=== PATIENT | male | born 1980 | race Caucasian/White ===

== ENCOUNTER 2022-06-23 17:43 | Emergency (ER) | payer BC, SELFPAY ==
[2022-06-23 18:04] VITALS: BP 123/72; PULSE 65; RESP 18; TEMP 36.4; O2SAT 97; BMI 34.3
--- NOTE | 2022-06-23 22:47 | ED_ITS ---
HPI - Wound/Laceration General Chief Complaint: Wound/Laceration Stated Complaint: L thumb injury Time Seen by Provider: 06/23/22 22:46 Source: patient Mode of arrival: ambulatory Limitations: no limitations History of Present Illness HPI narrative: 42-year-old male presenting to the emergency department for evaluation of laceration to left distal aspect of thumb, patient cut his thumb at work while working with metal, he is not up-to-date on a tetanus shot, initially it was bleeding however now has subsided. Denies numbness, tingling. No previous issues with left thumb. Patient not a diabetic Related Data Allergies Allergy/AdvReac Type Severity Reaction Status Date / Time No Known Allergies Allergy Verified 06/23/22 18:07 Review of Systems Review of Systems: Constitutional : No Fever, No Chills, Cardiovascular : No Chest Pain, No SOB Respiratory : No Dyspnea Gastrointestinal : No abdominal pain Musculoskeletal : No Joint Swelling Skin : No rash, positive skin laceration Neuro : No Weakness, No Numbness Psych : No SI/HI Yes all other systems are reviewed and are negative [facility] Past Medical History Attestation statement: The following information was validated with the patient. Source: old records reviewed and nursing notes reviewed Social History Social History Advance Directives: No Advance Directives Information Provided: No Physical Exam Vital Signs: Vital Signs: Last Vital Signs Temp 97.8 F 06/23/22 22:56 Pulse 59 06/23/22 22:56 Resp 12 06/23/22 22:56 BP 130/78 06/23/22 22:56 Pulse Ox 97 06/23/22 22:56 O2 Del Method Room Air 06/23/22 22:56 BMI result Body Mass Index 34.3 vss Appearance: Alert.? Oriented X3.? No acute distress.? Head: Normocephalic, atraumatic, no step-offs or deformities Eyes: Pupils equal, round and reactive to light.? CVS: Normal heart rate and rhythm.? Pulses normal.? Respiratory: No respiratory distress.? Breath sounds normal.? Abdomen: Soft and nontender.? Skin: Skin warm and dry.? Normal skin color.? Normal skin turgor.?+ there is a 2 cm laceration to the distal aspect of left thumb. No foreign bodies visualized. 2+ radial pulses equal bilateral. No wrist drop. Capillary refill less than 2 seconds to bilateral upper extremity digits. Normal sensation distally. Extremities: No lower extremity edema.? No calf ttp. 5/5 strength to bilateral upper and lower extremities Neuro: Oriented X 3.? No motor deficit.? No sensory deficit. CN 2-12 intact Course Reevaluation(s) Reevaluation #1: 3,5-0 sutures placed to patient's left thumb. Patient tolerated procedure well. Educated patient on diagnosis and treatment plan, answered all question, patient verbalizes understanding. At this time patient will be discharged home, advised to return with new or worsening symptoms. Educated on worrisome signs and symptoms and when to return. At this time I feel comfortable discharge home. Time: 23:19 Medical Decision Making Medical Decision Making [facility] Narrative: [id number] 42-year-old male presents with laceration to left thumb distal aspect occurred today at work while cutting metal. Not up-to-date on tetanus shot. Denies numbness and tingling. Not on blood thinners. Physical exam significant for Skin warm and dry.? Normal skin color.? Normal skin turgor.?+ there is a 2 cm laceration to the distal aspect of left thumb. No foreign bodies visualized. 2+ radial pulses equal bilateral. No wrist drop. Capillary refill less than 2 seconds to bilateral upper extremity digits. Normal sensation distally. This is likely a simple laceration, unlikely fractures, dislocation, threatened limb, neurovascular compromise. Plan Differential Diagnosis Differential Diagnoses: The differential diagnosis associated with the presentation includes This is likely a simple laceration, unlikely fractures, dislocation, threatened limb, neurovascular compromise. Core Measures AMI core measures followed: Yes Measure exclusions: not indicated Procedures Laceration Laceration 1: Site: hand Side (If applicable): left Size (cm): 2 Description: irregular Depth: simple, single layer Local Anesthetic: lidocaine 1% Amount of anesthesia used (mL): 5 Pre-repair: wound explored, irrigated extensively and deep structures intact Skin layer closed with: nylon Size (cm): 5-0 Number of sutures: 3 Technique: simple, interrupted Critical Care Time Critical Care Time Critical Care Time: No Discharge Plan Discharge Clinical Impression: Laceration Patient Disposition: Home, Self-Care Instructions: Laceration (ED) Additional Instructions: Take your medications as prescribed. If you were prescribed antibiotics today, it is important that you take your medication to their entirety, do not skip any doses, do not finish them early. Follow-up with your primary care provider this week. Return to the emergency department with new or worsening symptoms. Such as fevers, chills, chest pain, shortness of breath, nausea, vomiting, dizziness, headache, vision changes, lethargy In case of emergency call 911 Please follow-up with the were connection as this was a work related injury. Referrals: Physician,None [Primary Care Provider] - 2 days
[2022-06-23 22:56] VITALS: BP 130/78; PULSE 59; RESP 12; TEMP 36.6; O2SAT 97
[2022-06-23] MEDS: Diphth,Pertus(ACell),Tet Adult 0.5 ML SYRINGE IM (23:19)
[2022-06-23] MEDS: Lidocaine HCl 2 % MPF 5 ML VIAL SUBCUT (23:20)
== END 2022-06-23 23:23 | disposition home or self-care (01) ==
PROVIDERS: Emergency Provider Internal Medicine
DX: S61.012A Laceration without foreign body of left thumb without damage to nail, initial encounter (principal); W26.8XXA Contact with other sharp object(s), not elsewhere classified, initial encounter; Y93.89 Activity, other specified; Y92.9 Unspecified place or not applicable; Y99.0 Civilian activity done for income or pay
CPT/HCPCS: 12001; 90471; 90715; 99283; 99284